=== PATIENT | male | born 1960 | race Caucasian/White ===

== ENCOUNTER 2016-08-12 10:32 | Emergency (ER) | payer OTHER, BC ==
[~2016-08-12] VITALS: Ht 185.4 cm; Wt 117.3 kg
[2016-08-12 10:33] VITALS: TEMP 36.7; Ht 185.4 cm; Wt 117.3 kg
[2016-08-12] MEDS ORDERED: BLOOD PRESSURE MED PO (10:55)
[2016-08-12] MEDS ORDERED: SIMVASTATIN PO (10:55)
--- NOTE | 2016-08-12 11:23 | DIAGNOSTIC IMAGING REPORT ---
RIGHT SHOULDER 3 VIEWS HISTORY: shoulder pain/injury Right COMPARISON: None. FINDINGS: There is no fracture or dislocation. Soft tissues are unremarkable. Mild degenerative changes within the a.c. and glenohumeral joints. The clavicle is intact. IMPRESSION: No fracture or dislocation within the right shoulder. Electronically signed by: Jeff Sutton M.D. 08/12/2016 11:20 AM Dictated Date/Time: 08/12/2016 11:19 AM
--- NOTE | 2016-08-12 11:37 | EMERGENCY ROOM VISIT NOTE ---
ED Visit Note First contact with patient: 10:38 CHIEF COMPLAINT: Right Shoulder injury HISTORY OF PRESENT ILLNESS: This 56-year-old male presents the ER with chief complaint of right shoulder pain. The patient states on Friday he slipped on the first step and he thinks that he hyperextended his right shoulder. The patient states that he can hear and feel a "pop" with certain movements. He is able to move his arm above his head but states that he has to rotate his shoulder posterior in order to get it above his head. The patient denies any pain radiating down his arm or any numbness and tingling. He denies any prior injury to his right shoulder. The patient has seen [facility] in the past. He called there this morning but they could not get in until Friday. He currently rates his pain at a 1 out of 10. He took Motrin for pain. REVIEW OF SYSTEMS: 6 system review was performed and was negative unless stated otherwise in history of present illness. PMH: The patient is healthy; hypertension, open heart surgery, leg surgery, toe surgery SOCIAL HISTORY: Patient lives with his . The patient denies any tobacco use but admits to occasional alcohol use. PHYSICAL EXAM: Vital Signs: Were reviewed Reviewed nurse's notes. GENERAL: 56- year-old white male appears in no acute distress. MENTAL Status: Alert and oriented 3. RIGHT SHOULDER: The shoulder is not swollen or deformed on inspection. The patient has full range of motion of the shoulder with pain elicited past 90 abduction. Acute Dialysis Registered Nurse strength is 5 out of 5 as compared to the left. Patient is nontender to palpation over the before meals joint. He has tenderness palpation over the lateral aspect of the humeral head. EMERGENCY DEPARTMENT COURSE: The patient was evaluated. X-ray of the right shoulder was ordered and interpreted by the radiologist and myself. DIAGNOSTICS:RIGHT SHOULDER 3 VIEWS HISTORY: shoulder pain/injury Right COMPARISON: None. FINDINGS: There is no fracture or dislocation. Soft tissues are unremarkable. Mild degenerative changes within the a.c. and glenohumeral joints. The clavicle is intact. IMPRESSION: No fracture or dislocation within the right shoulder. Electronically signed by: Jeff Sutton M.D. 08/12/2016 11:20 AM Dictated Date/Time: 08/12/2016 11:19 AM The patient was informed of the findings. The patient was offered a sling but declined. The patient was discharged home in stable condition. DIAGNOSIS: Right shoulder pain DISCHARGE INSTRUCTIONS & TREATMENT: Ibuprofen 600 mg every 6 hours with food for pain. Avoid any strenuous activity with her upper body until pain subsides. If symptoms are not improving in 2-3 days recommend follow-up with orthopedics for further evaluation and treatment. Current/Historical Medications Scheduled [Blood Pressure Med], 1 TAB PO DAILY [Simvastatin], 1 TAB PO DAILY Allergies Coded Allergies: Penicillins (Unverified Allergy, Unknown, unknown, 08/12/16) Sulfa Antibiotics (Unverified Allergy, Unknown, unknown, 08/12/16) Vital Signs Date Time Temp Pulse Resp B/P Pulse Ox O2 Delivery O2 Flow Rate FiO2 08/12/16 10:33 36.7 74 18 163/95 96 Room Air Departure Information Referrals Ashish Villegas M.D. (PCP) Patient Instructions My [facility]
[2016-08-12 11:43] VITALS: BP 155/79; PULSE 76; O2SAT 97
== END 2016-08-12 11:44 | disposition home or self-care (01) ==
LOC: C.EDB 10:33 → C.EDA 11:44
DX: S49.91XA Unspecified injury of right shoulder and upper arm, initial encounter (principal); W01.0XXA Fall on same level from slipping, tripping and stumbling without subsequent striking against object, initial encounter; I10 Essential (primary) hypertension; Z79.899 Other long term (current) drug therapy

== ENCOUNTER → 2016-09-11 | Outpatient (CLI) | payer OTHER, BC ==
[~2016-09-11] MED LIST: BLOOD PRESSURE MED PO; SIMVASTATIN PO
== END | disposition home or self-care (01) ==
LOC: C.CPL 16:57
DX: Z01.818 Encounter for other preprocedural examination (principal); M75.101 Unspecified rotator cuff tear or rupture of right shoulder, not specified as traumatic

== ENCOUNTER → 2017-05-30 | Outpatient (CLI) | payer OTHER, BC ==
[2017-05-30 12:48] LABS: HEMATOCRIT 46.7 % (42-52); HEMOGLOBIN 15.9 g/dL (14.0-18.0); MEAN CELL VOLUME 88.4 fL (80-100); MEAN CORPUSCULAR HEMOGLOBIN 30.1 pg (25-34); MEAN PLATELET VOLUME 9.8 fL (7.4-10.4); PLATELET COUNT 129 K/uL (130-400); RED CELL DISTRIBUTION WIDTH SD 45.4 fL (36.4-46.3)
[2017-05-30 13:08] LABS: ALT/SGPT 87 U/L (12-78); BLOOD UREA NITROGEN 15 mg/dl (7-18); CALCIUM 8.7 mg/dl (8.5-10.1); CARBON DIOXIDE 27 mmol/L (21-32); CHOLESTEROL 127 mg/dl (0-200); CREATININE 1.15 mg/dl (0.60-1.40); GLUCOSE 103 mg/dl (70-99); POTASSIUM 4.1 mmol/L (3.5-5.1); SODIUM 140 mmol/L (136-145)
[2017-05-30 13:13] LABS: ALKALINE PHOSPHATASE 86 U/L (45-117); AST/SGOT 33 U/L (15-37); LDL CHOLESTEROL CALCULATED 70 mg/dl; TOTAL PROTEIN 7.2 gm/dl (6.4-8.2)
== END | disposition home or self-care (01) ==
LOC: C.LABBFT 08:59
PROVIDERS: ATTEND Nurse Practitioner
DX: Z12.5 Encounter for screening for malignant neoplasm of prostate (principal); E78.5 Hyperlipidemia, unspecified; I10 Essential (primary) hypertension